=== PATIENT | female | born 1955 | race Two or more races ===

== ENCOUNTER → 2021-06-26 | Emergency (ER) | payer MEDICARE, BC ==
--- NOTE | 2021-06-26 16:53 | NUR ---
PATIENT IS IN LOBBY AND CALLED INTO TRIAGE, BUT STATES THAT SHE IS TIRED AND JUST WANTS TO GO HOME. STATES SHE DOES NOT WANT TO SEE THE DRPhilippe AT THIS TIME AND IS FEELING BETTER.
== END | disposition left against medical advice (07) ==
LOC: ER 15:24
DX: F41.9 Anxiety disorder, unspecified (principal); Z53.21 Procedure and treatment not carried out due to patient leaving prior to being seen by health care provider